=== PATIENT | male | born 1950 | race Caucasian/White ===

== ENCOUNTER 2021-05-10 15:01 | Inpatient (IN) | payer OTHER, MEDICAID ==
[~2021-05-10] VITALS: Ht 180.3 cm; Wt 75.7 kg
[2021-05-10 15:07] VITALS: BP 84/32
[2021-05-10 15:51] LABS: BASO % 0.5 % (0.0-1.0); EOS # 0.3 10*3/uL (0.0-0.4); EOS % 4.2 % (1.0-4.0); HEMATOCRIT 39.9 % (42.0-52.0); LYMPH # 1.9 10*3/uL (1.3-4.4); LYMPH % 23.8 % (27.0-41.0); MEAN CELL VOLUME 98.5 fl (80.0-94.0); MEAN CORPUSCULAR HGB 32.8 pg (27.0-31.0); MEAN CORPUSCULAR HGB CONC 33.3 g/dl (33.0-37.0); MEAN PLATELET VOLUME 9.5 fl (9.6-12.3); MONO # 0.9 10*3/uL (0.1-1.0); MONO % 11.8 % (3.0-9.0); NEUT # 4.6 10*3/uL (2.3-7.9); NEUT % 59.3 % (47.0-73.0); PLATELET COUNT AUTOMATED 239 10*3/uL (130-400); RED BLOOD COUNT 4.05 10*6/uL (4.50-5.90); RED CELL DISTRI WIDTH 14.3 % (0-14.5); WHITE BLOOD COUNT 7.8 10*3/uL (4.8-10.8)
[2021-05-10 16:06] LABS: ACT PARTIAL THROMBO TIME 28.8 SECONDS (20.0-32.1); ALKALINE PHOSPHATASE 173 U/L (45-117); BUN 17 mg/dl (7-24); CHLORIDE 106 mmol/L (98-107); CREATININE 1.18 mg/dL (0.70-1.30); LIPASE 125 U/L (73-393); POTASSIUM 3.4 mmol/L (3.5-5.1); SGOT/AST 8 IU/L (3-35); SGPT/ALT 17 U/L (12-78); SODIUM 137 mmol/L (136-145)
[2021-05-10 16:12] LABS: TROPONIN I < 0.015 ng/ml (<0.045)
[2021-05-11 07:10] LABS: BASO % 0.5 % (0.0-1.0); EOS # 0.4 10*3/uL (0.0-0.4); EOS % 4.7 % (1.0-4.0); HEMATOCRIT 37.4 % (42.0-52.0); LYMPH # 2.4 10*3/uL (1.3-4.4); LYMPH % 31.5 % (27.0-41.0); MEAN CELL VOLUME 98.4 fl (80.0-94.0); MEAN CORPUSCULAR HGB 32.6 pg (27.0-31.0); MEAN CORPUSCULAR HGB CONC 33.2 g/dl (33.0-37.0); MEAN PLATELET VOLUME 9.4 fl (9.6-12.3); MONO # 0.9 10*3/uL (0.1-1.0); MONO % 11.1 % (3.0-9.0); NEUT % 51.9 % (47.0-73.0); PLATELET COUNT AUTOMATED 213 10*3/uL (130-400); RED CELL DISTRI WIDTH 14.5 % (0-14.5); WHITE BLOOD COUNT 7.7 10*3/uL (4.8-10.8)
[2021-05-11 07:32] LABS: ALBUMIN 2.6 gm/dl (3.1-4.5); BUN 17 mg/dl (7-24); CHLORIDE 108 mmol/L (98-107); POTASSIUM 3.3 mmol/L (3.5-5.1); SODIUM 139 mmol/L (136-145)
[2021-05-11 07:42] LABS: ALKALINE PHOSPHATASE 151 U/L (45-117); CHOLESTEROL 105 mg/dL (<200); CREATININE 0.93 mg/dL (0.70-1.30); FREE T4 1.01 ng/dl (0.76-1.46); LDL CHOLESTEROL 32 mg/dL (9-159); SGOT/AST 7 IU/L (3-35); SGPT/ALT 12 U/L (12-78); TOTAL PROTEIN 6.2 gm/dL (6.4-8.2); TRIGLYCERIDES 135 mg/dl (<150)
[2021-05-11 08:00] VITALS: BP 132/71
[2021-05-11 08:29] LABS: VITAMIN D, 25-HYDROXY 25.7 ng/mL (30-100)
[2021-05-11 08:49] LABS: BILIRUBIN 1+ (Negative); BLOOD Negative (Negative); CLARITY Clear (Clear); COLOR Dark Yellow (Yellow); GLUCOSE Negative (Negative); KETONE 1+ (Negative); LEUKO ESTERASE Trace (Negative); NITRITE Negative (Negative)
[2021-05-11 08:56] LABS: RBC 0-2 rbc/hpf (0-2)
[2021-05-11 08:57] LABS: BACTERIA TRACE; EPITHELIAL CELLS 0-2; MUCOUS TRACE
[2021-05-11 12:06] VITALS: BP 107/64
[2021-05-11] MEDS ORDERED: LISINOPRIL5 MG PO (13:21)
[2021-05-11] MEDS ORDERED: PANTOPRAZOLE SO40 MG PO (13:22)
[2021-05-11] MEDS ORDERED: ATORVASTATIN CA40 M1 PO (13:22)
[2021-05-11] MEDS ORDERED: METOPROLOL SUCC25 M2 PO (13:22)
== END 2021-05-11 14:45 | disposition home or self-care (01) | DRG 641 ==
LOC: ED → EDHOLD 16:34
PROVIDERS: Emergency Medicine; Internal Medicine; ADMIT Student in an Organized Health Care Education/Training Program; ATTEND Student in an Organized Health Care Education/Training Program
PROC: 4B02XSZ Measurement of Cardiac Pacemaker, External Approach (ICD-10-PCS; principal; 2021-05-11)
DX: E86.0 Dehydration (principal); E44.0 Moderate protein-calorie malnutrition; N17.9 Acute kidney failure, unspecified; I95.89 Other hypotension; E87.2 Acidosis; E86.1 Hypovolemia; D53.9 Nutritional anemia, unspecified; F17.210 Nicotine dependence, cigarettes, uncomplicated; Z71.6 Tobacco abuse counseling; E87.6 Hypokalemia; I10 Essential (primary) hypertension; F41.9 Anxiety disorder, unspecified; F32.A Depression, unspecified; M19.91 Primary osteoarthritis, unspecified site; R63.4 Abnormal weight loss; Z82.3 Family history of stroke

== ENCOUNTER → 2021-06-16 | Outpatient (CLI) | payer OTHER, MEDICAID ==
[~2021-06-16] MED LIST: ASPIRIN ADULT L81 M1 PO; ATORVASTATIN CA40 M1 PO; LISINOPRIL5 MG PO; METOPROLOL SUCC25 M2 PO; PANTOPRAZOLE SO40 MG PO
== END | disposition home or self-care (01) ==
LOC: CARD 00:01
PROVIDERS: ATTEND Internal Medicine Cardiovascular Disease
DX: R94.31 Abnormal electrocardiogram [ECG] [EKG] (principal); R53.83 Other fatigue

== ENCOUNTER → 2022-08-06 | Outpatient (CLI) | payer MEDICARE, MEDICAID ==
[2022-08-06 08:08] LABS: BASO # 0.1 10*3/uL (0.0-0.1); BASO % 0.6 % (0.0-1.0); EOS # 0.3 10*3/uL (0.0-0.4); EOS % 3.8 % (1.0-4.0); LYMPH # 2.5 10*3/uL (1.3-4.4); LYMPH % 29.1 % (27.0-41.0); MEAN CELL VOLUME 98.5 fl (80.0-94.0); MEAN CORPUSCULAR HGB 33.3 pg (27.0-31.0); MEAN CORPUSCULAR HGB CONC 33.8 g/dl (33.0-37.0); MEAN PLATELET VOLUME 8.8 fl (9.6-12.3); MONO % 11.5 % (3.0-9.0); NEUT # 4.8 10*3/uL (2.3-7.9); NEUT % 54.7 % (47.0-73.0); PLATELET COUNT AUTOMATED 210 10*3/uL (130-400); RED BLOOD COUNT 5.28 10*6/uL (4.50-5.90); RED CELL DISTRI WIDTH 14.8 % (0-14.5); WHITE BLOOD COUNT 8.7 10*3/uL (4.8-10.8)
[2022-08-06 08:27] LABS: ALKALINE PHOSPHATASE 143 U/L (46-116); BUN 13 mg/dl (9-23); CHLORIDE 104 mmol/L (98-107); CHOLESTEROL 155 mg/dL (<200); LDL CHOLESTEROL 77 mg/dL (9-159); TRIGLYCERIDES 168 mg/dl (<150)
[2022-08-06 08:28] LABS: SGPT/ALT < 7 U/L (10-49)
[2022-08-06 09:50] LABS: VITAMIN D, 25-HYDROXY 25.4 ng/mL (30-100)
== END | disposition home or self-care (01) ==
LOC: LAB 07:36
PROVIDERS: ATTEND Family Medicine
DX: M17.0 Bilateral primary osteoarthritis of knee (principal); G89.29 Other chronic pain; M25.561 Pain in right knee; M25.562 Pain in left knee; D64.9 Anemia, unspecified; I10 Essential (primary) hypertension; E55.9 Vitamin D deficiency, unspecified

== ENCOUNTER 2022-09-17 18:35 | Emergency (ER) | payer MEDICARE, MEDICAID ==
[~2022-09-17] VITALS: Ht 175.2 cm; Wt 81.6 kg
[2022-09-17 19:24] LABS: HEMATOCRIT 54.7 % (42.0-52.0); MANUAL DIFF REFLEX YES; MEAN CELL VOLUME 97.7 fl (80.0-94.0); MEAN CORPUSCULAR HGB 33.9 pg (27.0-31.0); MEAN CORPUSCULAR HGB CONC 34.7 g/dl (33.0-37.0); MEAN PLATELET VOLUME 9.6 fl (9.6-12.3); PLATELET COUNT AUTOMATED 171 10*3/uL (130-400); RED CELL DISTRI WIDTH 14.7 % (0-14.5); WHITE BLOOD COUNT 22.8 10*3/uL (4.8-10.8)
[2022-09-17 19:44] LABS: PLATELET SUFFICIENCY NORMAL (NORMAL); TOTAL CELLS COUNTED 100 #CELLS
[2022-09-17 20:03] LABS: BILIRUBIN 1+ (Negative); BLOOD Negative (Negative); CLARITY Cloudy (Clear); GLUCOSE Negative (Negative); KETONE 1+ (Negative); LEUKO ESTERASE Trace (Negative); NITRITE Negative (Negative); PH 6.5 (4.5-8.0); SPECIFIC GRAVITY >= 1.030 (1.001-1.030)
[2022-09-17 20:05] LABS: CHLORIDE 98 mmol/L (98-107); POTASSIUM 3.8 mmol/L (3.4-5.1)
[2022-09-17 20:32] LABS: ALKALINE PHOSPHATASE 121 U/L (46-116); BUN 19 mg/dl (9-23); SGPT/ALT 57 U/L (10-49); TOTAL PROTEIN 7.3 gm/dL (6.0-8.0)
[2022-09-17 20:33] LABS: ETHYL ALCOHOL < 3.0 mg/dl (<3)
[2022-09-17 20:55] LABS: COLOR Orange (Yellow)
[2022-09-17 20:56] LABS: BACTERIA TRACE; RBC 0-2 rbc/hpf (0-2)
[2022-09-17] MEDS ORDERED: ONDANSETRON4 MG SL (21:11)
== END 2022-09-17 21:23 | disposition home or self-care (01) ==
LOC: ED 18:35
PROVIDERS: Internal Medicine
DX: G40.89 Other seizures (principal); R79.89 Other specified abnormal findings of blood chemistry; D72.829 Elevated white blood cell count, unspecified; D75.89 Other specified diseases of blood and blood-forming organs; D75.1 Secondary polycythemia; N18.31 Chronic kidney disease, stage 3a; Z79.899 Other long term (current) drug therapy; Z79.82 Long term (current) use of aspirin; Z87.891 Personal history of nicotine dependence